=== PATIENT | female | born 1990 | race Caucasian/White ===

== ENCOUNTER 2020-09-06 13:02 | Emergency (ER) | payer MEDICAID, SELFPAY ==
[2020-09-06 13:02] VITALS: BP 150/86; PULSE 94; RESP 18; TEMP 37; O2SAT 96; BMI 45.8
--- NOTE | 2020-09-06 13:07 | ED.VIS.GEN ---
History of Present Illness Chief Complaint: Dental Informant: Patient Narrative: 9-year-old female presenting with pain in her left upper molar. She states this is been ongoing. She has difficulty with GERD which is causing erosion to her teeth. She called her dentist office today however they would not call her in any pain medication or antibiotics. She did call her PCP who also referred her to the emergency room. Patient is not had any fever, facial swelling, difficulty breathing or swallowing. She is had no trauma to the face. Past Medical History - Allergies and Home Meds Allergies/Adverse Reactions: Allergies clarithromycin [From Biaxin] Allergy (Verified 09/06/20 13:08) Anaphylaxis codeine Adverse Reaction (Verified 09/06/20 13:08) Nausea Primary Care Physician: NOT,DEFINED [NON-STAFF] - Prior records reviewed: Yes Surgical History: noncontributory Lives: Alone Smoking Status: Unknown if ever smoked Alcohol: None Drugs: None Review of Systems General: Denies: Chills, Fever, Sweats Eyes: Denies: Visual changes - bilaterally, Diplopia ENT: Reports: - - Left upper maxillary pain.. Denies: Rhinorrhea, Sore throat Respiratory: Denies: Dyspnea, Cough Gastrointestinal: Denies: Abdominal pain, Nausea Genitourinary: Denies: Dysuria, Hematuria Musculoskeletal: Denies: Myalgias, Arthralgias Skin: Denies: Rash, Abscess Neurological: Denies: Headache, Weakness, Parasthesia Physical Exam Vital Signs/Narrative: Vital Signs Temp Pulse Resp BP Pulse Ox 09/06/20 13:02 98.6 F 94 18 150/86 H 96 General: Well nourished, No Acute Distress Head: Normocephalic, Atraumatic Eyes: Perrl, EOMI ENT: Moist mucous membranes, No rhinorrhea, - - Erosion of the upper molar tooth #16. There is percussion tenderness here. The gingiva are normal appearing. Buccal mucosal is normal. There is no sublingual edema. Cardiovascular: Regular rate, Regular rhythm Respiratory: No distress, CTA bilaterally Skin: Normal color, No rash. Negative for: Cyanosis, Diaphoresis Neurological: Alert, Oriented x3, Cranial nerves II-XII grossly intact Psychological: Normal affect, Normal Mood Diagnostic/Tx/Re-eval - Medical Decision Making She has been of tooth #16. I do believe she would benefit from antibiotics. I will put her on pain medication until she can follow-up with her dentist. She states she is currently waiting her Covid?19 swab for history of runny nose and slight cough. This is why her dentist and primary care physician will see her. She will quarantine at home until she gets her results. Impression: 1. Dental infection 2. Dental pain ED Disposition - Plan for ED Patient: Disposition: Home or Assisted Living Instructions: Dental Abscess, ED Dental Cavity Prescriptions: Amox/Clavulanate Tablet [Augmentin Tablet] 875 mg PO Q12H #20 tab Prescription Printed Oxycodone [Oxyir] 5 mg PO Q6H PRN PRN 3 Days #12 tab PRN Reason: pain Prescription Printed Referrals: NOT,DEFINED [NON-STAFF] -
--- NOTE | 2020-09-06 13:43 | ED.RN ---
DISCHARGE INSTRUCTIONS GIVEN TO AND REVIEWED WITH PATIENT, PATIENT DENIES QUESTIONS OR CONCERNS AND VOICES UNDERSTANDING OF DISCHARGE INSTRUCTIONS. PT AMBULATES OUT OF ROOM WITHOUT DIFFICULTY.
== END 2020-09-06 13:44 | disposition home or self-care (01) ==
LOC: ED 13:40
PROVIDERS: Emergency Provider Student in an Organized Health Care Education/Training Program
DX: K04.7 Periapical abscess without sinus (principal); K21.9 Gastro-esophageal reflux disease without esophagitis
CPT/HCPCS: 99282

== ENCOUNTER 2020-10-18 21:48 | Emergency (ER) | payer MEDICAID, SELFPAY ==
[2020-10-18 21:50] VITALS: BP 147/99; PULSE 90; RESP 16; TEMP 36.9; O2SAT 98; BMI 45.4
--- NOTE | 2020-10-18 22:08 | ED.DCSUM_ITS ---
- ER Visit Summary Date of Service: 10/18/20 Chief Complaint: Left upper molar dental pain from a cavity History of Present Illness: The patient is a 29 F cavity left upper molar for 1 to 2 months. Was seen in this emergency department a month ago at that time was prescribed limited Percocet. Want to see a dentist scheduled for root canal root canal was canceled today. She is having continued pain. She was seen in [place] on Saturday they started on penicillin and she was given local lidocaine in the area which she said really did nothing to relieve her pain. She is hoping to get some for pain. She denies any nausea vomiting diarrhea, fever or swelling. Physical Examination: Well-appearing young female vital signs stable afebrile does not look septic or toxic. No acute distress. HEENT exam left upper molar has a large cavity. Tender to palpation. No gingival swelling. No abscess. No trismus. No swelling to the lips, gums or sublingual region. No trouble swallowing or breathing. There is no facial swelling. Neck nontender no lymphadenopathy. Lungs clear to auscultation. Heart regular rhythm no murmur. Abdomen soft nontender. Morbidly obese. Moving all 4 extremities. Neurologically awake alert with no focal motor deficits. Test Results: None Emergency Department Course and Treatment: Patient has dental pain from the cavity. I explained to her we cannot give her another prescription for narcotics. She will need to use Tylenol and Motrin for pain. I did give her 1 dose of OxyIR here in emergency department for pain. Otherwise follow-up with her dentist. Treatment Plan: Follow-up with her dentist. Tylenol and/or Motrin for pain. Disposition: Discharge Impression: Acute dental pain secondary to dental cavity of the left upper molar This note was generated with [employer] dictation software. It may contain incorrect words, spelling, and punctuation that were not noted in review of the chart prior to signing ED Disposition - Plan for ED Patient: Referrals: Amy Schmitz MD [Primary Care Provider] -
--- NOTE | 2020-10-18 22:10 | ED.DEP ---
ED Disposition - Plan for ED Patient: Disposition: Home or Assisted Living Instructions: ED Dental Cavity Referrals: Amy Schmitz MD [Primary Care Provider] - As Needed Additional Instructions: Call follow-up with your dentist as soon as possible. They can pack the tooth to help decrease the pain due to the exposed nerve. Also follow-up to get the root canal rescheduled. Continue your antibiotic. Tylenol and/or Motrin for pain.
[2020-10-18 22:15] VITALS: PULSE 68; RESP 18
[2020-10-18] MEDS: oxyCODONE 5 MG Tablet 10 MG PO (22:18)
== END 2020-10-18 22:23 | disposition home or self-care (01) ==
LOC: ED 22:19
PROVIDERS: Emergency Provider Emergency Medicine; PCP Family Medicine
DX: K02.9 Dental caries, unspecified (principal); J45.909 Unspecified asthma, uncomplicated
CPT/HCPCS: 99283

== ENCOUNTER 2020-12-22 17:42 | Emergency (ER) | payer MEDICAID, SELFPAY ==
[2020-12-22 17:42] VITALS: BP 168/98; PULSE 87; RESP 16; TEMP 35.8; O2SAT 97; BMI 45.6
[2020-12-22 17:44] VITALS: BP 168/98; PULSE 87; RESP 16; TEMP 35.8; O2SAT 97
--- NOTE | 2020-12-22 17:56 | ED.DCSUM_ITS ---
History of Present Illness Chief Complaint: Dental Informant: Patient Narrative: 30-year-old female with history of dental pain in the left upper molar region presenting for pain in the same area. She does state that she did see a dentist in the did put a temporary cap on this and she is sent to the paediatric physiotherapist for follow-up. She states that this has come off in her sleep. She thinks it is because of bruxism. She denies any difficulty breathing or swallowing. She states she called multiple dentists and was unable to get an appointment today. Past Medical History - Allergies and Home Meds Allergies/Adverse Reactions: Allergies clarithromycin [From Biaxin] Allergy (Verified 12/22/20 17:44) Anaphylaxis codeine Adverse Reaction (Verified 12/22/20 17:44) Nausea Primary Care Physician: Amy Schmitz MD [Primary Care Provider] - Past Medical History: - - Anxiety, asthma, GERD Surgical History: noncontributory Lives: With Family Smoking Status: Current every day smoker Alcohol: None Drugs: None Review of Systems General: Denies: Chills, Fever, Sweats Eyes: Denies: Visual changes - bilaterally, Diplopia ENT: Reports: - - Left upper dental pain. Denies: Rhinorrhea, Sore throat Cardiovascular: Denies: Chest pain, Palpitations Respiratory: Denies: Dyspnea, Cough, Dyspnea on exertion Gastrointestinal: Denies: Abdominal pain, Nausea Genitourinary: Denies: Dysuria, Hematuria Musculoskeletal: Denies: Myalgias, Arthralgias, Neck pain Skin: Reports: Rash. Denies: Abscess Neurological: Denies: Headache, Weakness Psych: Denies: Depression, Anxiety Physical Exam Vital Signs/Narrative: Vital Signs Temp Pulse Resp BP Pulse Ox 12/22/20 17:44 96.5 F L 87 16 168/98 H 97 12/22/20 17:42 96.5 F L 87 16 168/98 H 97 Inital Vital Signs reviewed: Yes General: Obese, No Acute Distress Head: Normocephalic, Atraumatic Eyes: Perrl, EOMI ENT: Moist mucous membranes, No rhinorrhea, - - No sublingual edema. Buccal mucosa was normal. Dentition appear to be intact. There is percussion tenderness over her left upper molar. There is no gingival swelling. Neck is supple without lymphadenopathy. No facial swelling. Neck: Supple, No lymphadenopathy Cardiovascular: Regular rate, Regular rhythm Respiratory: No distress, CTA bilaterally Skin: Normal color, No rash Neurological: Alert, Oriented x3, Cranial nerves II-XII grossly intact Psychological: Normal affect Diagnostic/Tx/Re-eval - Medical Decision Making 30-year-old female with chronic dental pain and acute exacerbation. Review the medical record shows that she has had this before. She was initially given narcotic pain medications however on her last visit she was previously told that she cannot receive narcotics again for chronic condition. Although she states she has had this capped I cannot confirm this and I do not feel comfortable prescribing her narcotic pain medication. She was offered 1 oxycodone in the ED. She is given dental referrals. She can return precautions. There is no signs of symptoms of Ernst's angina. Patient stable for discharge at this time. Impression: 1. Dental pain 2. Dental infection ED Disposition - Plan for ED Patient: Disposition: Home or Assisted Living Instructions: ED Dental Cavity Referrals: Amy Schmitz MD [Primary Care Provider] -
[2020-12-22] MEDS: oxyCODONE 5 MG Tablet PO (18:34)
[2020-12-22] MEDS: Amox/Clavulanate 875 MG Tablet PO (18:34)
[2020-12-22 18:37] VITALS: RESP 17
--- NOTE | 2020-12-22 18:37 | ED.RN ---
PT MADLY WALKED OUT OF THE ER AND WAVED HER PAPERS SAYING SEE YOU FUCKING TOMORROW
== END 2020-12-22 18:37 | disposition home or self-care (01) ==
LOC: ED 18:23
PROVIDERS: Emergency Provider Student in an Organized Health Care Education/Training Program; PCP Family Medicine
DX: K04.7 Periapical abscess without sinus (principal); J45.909 Unspecified asthma, uncomplicated; K21.9 Gastro-esophageal reflux disease without esophagitis; F41.9 Anxiety disorder, unspecified; Z79.899 Other long term (current) drug therapy; F17.200 Nicotine dependence, unspecified, uncomplicated
CPT/HCPCS: 99283